=== PATIENT | female | born 1965 | race African-American/Black ===

== ENCOUNTER 2020-06-15 18:57 | Emergency (ER) | payer OTHER ==
[~2020-06-15] VITALS: Ht 172.7 cm; Wt 61.0 kg
[2020-06-15] MEDS ORDERED: SODIUM CHLORIDE 0.9% 1,000 ML IV ONE (20:45)
[2020-06-15 22:23] LABS: BASOPHILS % 0.5 % (0.0-2.0); EOSINOPHILS % 0.4 % (0.0-5.0); HEMATOCRIT. 35.9 % (36.0-48.0); HEMOGLOBIN. 11.9 g/dL (12.0-16.0); LYMPHOCYTES % 19.1 % (20.0-50.0); MEAN CORPUSCULAR HEMOGLOBIN 29.8 pg (28.0-32.0); MEAN CORPUSCULAR VOLUME 89.4 fL (81.0-99.0); MEAN PLATELET VOLUME 8.2 fl (7.4-10.4); MONOCYTES % 5.4 % (2.0-8.0); NEUTROPHILS % 74.6 % (40.0-76.0); PLATELET 294 x1000/uL (130-400); RED BLOOD CELL COUNT 4.01 mill/uL (4.2-5.4); RED CELL DISTRIBUTION WIDTH 14.4 % (11.6-14.6)
[2020-06-15 22:29] LABS: CHLORIDE 105 mEq/L (98-107)
[2020-06-15 22:39] LABS: B-HCG QUANTITATIVE < 1 mIU/mL (<3)
[2020-06-15] MEDS ORDERED: MEDROXYPROGESTERONE ACET 5MG TABLET PO STA (23:15)
[2020-06-15] MEDS ORDERED: MEDR10TA MT (23:19)
[2020-06-16 00:57] VITALS: BP 154/110
[2020-06-16] MEDS ORDERED: MEDROXYPROGESTERONE ACET 2.5MG TABLET PO SCH (01:00)
== END 2020-06-16 01:24 | disposition home or self-care (01) ==
LOC: ER 18:57
DX: N93.9 Abnormal uterine and vaginal bleeding, unspecified (principal); I10 Essential (primary) hypertension; M19.90 Unspecified osteoarthritis, unspecified site; G20 Parkinson's disease
CPT/HCPCS: 36415; 76830; 76856; 80053; 84702; 85025; 86850; 86900; 86901; 99284; J7030

== ENCOUNTER 2021-11-17 15:54 | Emergency (ER) | payer MEDICAID ==
[~2021-11-17] VITALS: Ht 170.2 cm; Wt 75.0 kg
[~2021-11-17 15:54] MED LIST: MEDR10TA MT
[2021-11-17] MEDS ORDERED: LOSARTAN POTASSIUM 50 MG TABLET PO ONE (16:15)
[2021-11-17] MEDS ORDERED: HYDROCODONE/ACETAMINOPHEN 5/325MG TABLET PO ONE (16:15)
[2021-11-17 18:25] VITALS: BP 123/84
[2021-11-17] MEDS ORDERED: LOSA50TA41 MT (19:13)
== END 2021-11-17 19:15 | disposition home or self-care (01) ==
LOC: ER 15:54
DX: I16.0 Hypertensive urgency (principal); G20 Parkinson's disease; M19.90 Unspecified osteoarthritis, unspecified site
CPT/HCPCS: 93005; 99284

== ENCOUNTER 2023-06-27 13:18 | Emergency (ER) | payer MEDICAID ==
[~2023-06-27] VITALS: Ht 172.7 cm; Wt 127.0 kg
[~2023-06-27 13:18] MED LIST changes: +LOSA50TA41 MT
[2023-06-27 13:31] VITALS: O2SAT 99
[2023-06-27] MEDS: IBUPROFEN 600MG TABLET PO ONE (14:15)
[2023-06-27] MEDS ORDERED: IBUP-2029 MT (15:23)
[2023-06-27 16:36] VITALS: BP 142/112; PULSE 53; RESP 18; TEMP 98.2
== END 2023-06-27 17:47 | disposition home or self-care (01) ==
LOC: ER 13:18
DX: S82.832A Other fracture of upper and lower end of left fibula, initial encounter for closed fracture (principal); I10 Essential (primary) hypertension; Z98.890 Other specified postprocedural states; V00.811A Fall from moving wheelchair (powered), initial encounter; Y93.89 Activity, other specified; Y92.89 Other specified places as the place of occurrence of the external cause; Y99.8 Other external cause status
CPT/HCPCS: 29515; 73562; 73610; 81025; 99284

== ENCOUNTER 2024-02-01 17:54 | Inpatient (IN) | payer MEDICAID ==
[~2024-02-01] VITALS: Ht 175.3 cm; Wt 99.3 kg
[~2024-02-01 17:54] MED LIST changes: +IBUP-2029 MT
[2024-02-01] MEDS ORDERED: LACTULOSE 20G/30ML UDC PO PRN (18:15)
[2024-02-01] MEDS ORDERED: NA PHOS,M-B/NA PHOS,DI-BA ENEMA 118ML PR PRN (18:30)
[2024-02-01] MEDS ORDERED: BISACODYL 10MG SUPP PR PRN (18:30)
[2024-02-01] MEDS ORDERED: ONDANSETRON HCL 4MG/2ML INJ IV PRN (18:30)
[2024-02-01] MEDS ORDERED: ZOLPIDEM TARTRATE 5MG TABLET PO PRN (18:30)
[2024-02-01] MEDS ORDERED: IPRATROPIUM/ALBUTEROL 0.5-3(2.5)MG/3ML NEB HHN PRN (18:30)
[2024-02-01] MEDS ORDERED: NITROGLYCERIN 0.4MG TABLET SL SL PRN (18:30)
[2024-02-01] MEDS ORDERED: ACETAMINOPHEN 325MG TABLET PO PRN (18:30)
[2024-02-01] MEDS ORDERED: NALOXONE HCL 0.4MG/ML 1ML VIAL IV PRN (18:30)
[2024-02-01 18:32] VITALS: BP 143/63; PULSE 59; RESP 20; TEMP 36.6404
[2024-02-01 20:00] VITALS: BP 136/58; PULSE 64; RESP 20; TEMP 37.2252; O2SAT 95
[2024-02-01] MEDS: RYTARY PO SCH (22:24)
[2024-02-01] MEDS: FAMOTIDINE 20MG TABLET PO SCH (22:25)
[2024-02-01] MEDS: DULOXETINE HCL 20MG DR CAPSULE PO SCH (22:25)
[2024-02-01] MEDS: DOCUSATE SODIUM 100MG CAPSULE PO SCH (22:25)
[2024-02-01] MEDS: CARBIDOPA/LEVODOPA 25/100MG TABLET PO SCH (22:25)
[2024-02-01] MEDS: LOSARTAN 50 MG TABLET PO SCH (22:26)
[2024-02-01] MEDS: POLYETHYLENE GLYCOL 3350 (17GM) 1 DOSE PACK PO SCH (22:27)
[2024-02-02] MEDS: HYDROCODONE/ACETAMINOPHEN 5/325MG TABLET PO PRN ×2 (06:52→16:57)
[2024-02-02 07:38] LABS: BASOPHILS % 0.4 % (0.0-2.0); EOSINOPHILS % 1.8 % (0.0-5.0); HEMATOCRIT. 30.2 % (36.0-48.0); HEMOGLOBIN. 9.9 g/dL (12.0-16.0); LYMPHOCYTES % 28.2 % (20.0-50.0); MEAN CORPUSCULAR HEMOGLOBIN 31.2 pg (28.0-32.0); MEAN CORPUSCULAR HGB CONC 32.6 g/dL (31.0-37.0); MEAN CORPUSCULAR VOLUME 95.5 fL (81.0-99.0); MEAN PLATELET VOLUME 8.7 fl (7.4-10.4); MONOCYTES % 10.3 % (2.0-8.0); NEUTROPHILS % 59.3 % (40.0-76.0); PLATELET 248 x1000/uL (130-400); RED BLOOD CELL COUNT 3.16 mill/uL (4.2-5.4)
[2024-02-02 07:39] LABS: CHLORIDE 103 mEq/L (98-107); POTASSIUM 3.7 mEq/L (3.5-5.1); SODIUM 137 mEq/L (136-145)
[2024-02-02 07:40] LABS: CARBON DIOXIDE 30 mEq/L (21-32)
[2024-02-02 07:45] LABS: CREATININE 0.5 mg/dL (0.6-1.0); GLUCOSE 102 mg/dL (70-105); UREA NITROGEN BLOOD 9 mg/dL (9-23)
[2024-02-02 07:47] LABS: ALANINE AMINOTRANSFERASE < 7 IU/L (10-49); ALBUMIN 3.6 g/dL (3.2-4.8); ASPARTATE AMINOTRANSFERASE 14 IU/L (<34); PREALBUMIN 7.3 mg/dl (10.0-40.0)
[2024-02-02 07:48] LABS: BILIRUBIN TOTAL 0.5 mg/dL (0.1-1.0); PROTEIN TOTAL 6.1 g/dL (6.0-8.3)
[2024-02-02 08:00] VITALS: BP 115/60; PULSE 64; RESP 19; TEMP 36.78072
[2024-02-02] MEDS: PRIMIDONE 50MG TABLET PO SCH (09:00)
[2024-02-02] MEDS: TRIAMTERENE/HCTZ 37.5/25MG TABLET PO SCH (09:00)
[2024-02-02] MEDS: PROPRANOLOL HCL 10MG TABLET PO SCH (09:00)
[2024-02-02] MEDS: TRAMADOL 50MG TABLET PO PRN (10:05)
[2024-02-02 20:00] VITALS: BP 123/73; PULSE 65; RESP 18; TEMP 36.50292; O2SAT 97
[2024-02-03 07:06] LABS: BASOPHILS % 0.6 % (0.0-2.0); EOSINOPHILS % 1.4 % (0.0-5.0); HEMATOCRIT. 34.3 % (36.0-48.0); HEMOGLOBIN. 11.1 g/dL (12.0-16.0); LYMPHOCYTES % 31.7 % (20.0-50.0); MEAN CORPUSCULAR HGB CONC 32.3 g/dL (31.0-37.0); MEAN CORPUSCULAR VOLUME 96.2 fL (81.0-99.0); MEAN PLATELET VOLUME 8.3 fl (7.4-10.4); MONOCYTES % 11.3 % (2.0-8.0); PLATELET 285 x1000/uL (130-400); RED BLOOD CELL COUNT 3.57 mill/uL (4.2-5.4); WHITE BLOOD COUNT 4.4 x1000/uL (4.5-11.0)
[2024-02-03 07:20] LABS: CALCIUM 9.6 mg/dL (8.7-10.4); CARBON DIOXIDE 30 mEq/L (21-32)
[2024-02-03 07:25] LABS: CREATININE 0.6 mg/dL (0.6-1.0); GLUCOSE 103 mg/dL (70-105); IRON 56 ug/dL (50-170); UREA NITROGEN BLOOD 9 mg/dL (9-23)
[2024-02-03 07:27] LABS: TOTAL IRON BINDING CAPACITY 242 ug/dl (250-425)
[2024-02-03 07:29] LABS: THYROID STIMULATING HORMONE 1.48 uIU/mL (0.55-4.78)
[2024-02-03 07:30] LABS: CHLORIDE 103 mEq/L (98-107); POTASSIUM 3.9 mEq/L (3.5-5.1); SODIUM 140 mEq/L (136-145)
[2024-02-03 07:40] LABS: FOLIC ACID (FOLATE) SERUM 14.02 ng/mL (>5.38)
[2024-02-03 07:42] LABS: FERRITIN 98 ng/mL (10-291)
[2024-02-03 07:46] LABS: VITAMIN B12 SERUM 778 pg/mL (211-911)
[2024-02-03 08:00] VITALS: BP 146/84; PULSE 67; RESP 18; TEMP 36.114; O2SAT 100
[2024-02-03] MEDS: ACETAMINOPHEN 325MG TABLET PO PRN (08:55)
[2024-02-03 20:00] VITALS: BP 123/69; PULSE 102; RESP 18; TEMP 35.89176; O2SAT 95
[2024-02-03] MEDS: MELATONIN 3MG TABLET PO SCH (21:51)
[2024-02-04] MEDS: GUAIFENESIN 200MG/10ML SUGAR FREE UDC PO PRN (01:13)
[2024-02-04 08:00] VITALS: BP 136/65; PULSE 77; RESP 20; TEMP 36.78072; O2SAT 100
[2024-02-04] MEDS: CARBIDOPA/LEVODOPA 25/100MG TABLET PO NR (17:57)
[2024-02-04 20:00] VITALS: BP 120/75; PULSE 73; RESP 20; TEMP 36.61404; O2SAT 96
[2024-02-05] MEDS: CARBIDOPA/LEVODOPA 25/100MG TABLET PO SCH (05:05)
[2024-02-05 08:00] VITALS: BP 120/70; PULSE 87; RESP 19; TEMP 36.72516; O2SAT 99
[2024-02-05] MEDS: ERGOCALCIFEROL 50000UNITS CAPSULE PO SCH (17:18)
[2024-02-05 20:00] VITALS: BP 120/52; PULSE 73; RESP 18; TEMP 36.114; O2SAT 100
[2024-02-06 08:00] VITALS: BP 120/46; PULSE 68; RESP 20; TEMP 36.114; O2SAT 98
[2024-02-06 20:00] VITALS: BP 96/76; PULSE 62; RESP 14; TEMP 36.50292; O2SAT 95
[2024-02-07 08:00] VITALS: BP 117/63; PULSE 62; RESP 18; TEMP 36.22512; O2SAT 100
[2024-02-07] MEDS: TRAMADOL 50MG TABLET PO NR (12:32)
[2024-02-07 20:00] VITALS: BP 102/57; PULSE 73; RESP 19; TEMP 36.22512; O2SAT 96
[2024-02-08] MEDS: CARBIDOPA/LEVODOPA 25/100MG TABLET PO SCH (05:13)
[2024-02-08 06:54] LABS: BASOPHILS % 0.7 % (0.0-2.0); EOSINOPHILS % 2.4 % (0.0-5.0); HEMATOCRIT. 32.6 % (36.0-48.0); HEMOGLOBIN. 10.5 g/dL (12.0-16.0); LYMPHOCYTES % 33.4 % (20.0-50.0); MEAN CORPUSCULAR HEMOGLOBIN 31.4 pg (28.0-32.0); MEAN CORPUSCULAR HGB CONC 32.4 g/dL (31.0-37.0); MEAN CORPUSCULAR VOLUME 97.1 fL (81.0-99.0); MEAN PLATELET VOLUME 7.7 fl (7.4-10.4); MONOCYTES % 11.2 % (2.0-8.0); NEUTROPHILS % 52.3 % (40.0-76.0); PLATELET 325 x1000/uL (130-400); RED BLOOD CELL COUNT 3.36 mill/uL (4.2-5.4); RED CELL DISTRIBUTION WIDTH 14.2 % (11.6-14.6); WHITE BLOOD COUNT 4.8 x1000/uL (4.5-11.0)
[2024-02-08 07:14] LABS: CARBON DIOXIDE 27 mEq/L (21-32); CHLORIDE 107 mEq/L (98-107); POTASSIUM 4.2 mEq/L (3.5-5.1); SODIUM 141 mEq/L (136-145)
[2024-02-08 07:16] LABS: CALCIUM 9.5 mg/dL (8.7-10.4)
[2024-02-08 07:20] LABS: CREATININE 0.6 mg/dL (0.6-1.0); GLUCOSE 98 mg/dL (70-105); UREA NITROGEN BLOOD 12 mg/dL (9-23)
[2024-02-08 08:00] VITALS: BP 108/67; PULSE 58; RESP 19; TEMP 36.72516; O2SAT 99
[2024-02-08 20:00] VITALS: BP 100/67; PULSE 66; RESP 18; TEMP 36.61404; O2SAT 95
[2024-02-09 08:00] VITALS: BP 150/79; PULSE 61; RESP 18; TEMP 36.22512; O2SAT 100
[2024-02-09] MEDS: AMANTADINE HCL 100 MG PO SCH (18:21)
[2024-02-09 20:00] VITALS: BP 140/82; PULSE 64; RESP 18; TEMP 36.22512; O2SAT 99
[2024-02-09] MEDS: PAROXETINE HCL 10MG TABLET PO SCH (22:13)
[2024-02-09] MEDS ORDERED: PAROXETINE HCL 10MG TABLET PO SCH (22:30)
[2024-02-10 08:17] VITALS: BP 111/61; PULSE 60; RESP 16; TEMP 35.78064; O2SAT 99
[2024-02-10] MEDS ORDERED: PRIMIDONE 50MG TABLET PO SCH (09:00)
[2024-02-10] MEDS: PRIMIDONE 50MG TABLET PO SCH (17:34)
[2024-02-10 20:00] VITALS: BP 121/79; PULSE 66; RESP 18; TEMP 36.28068; O2SAT 98
[2024-02-11 08:00] VITALS: BP 127/76; PULSE 60; RESP 18; RESP 19; TEMP 36.78072; O2SAT 98; O2SAT 99
[2024-02-11 20:00] VITALS: BP 103/65; PULSE 20; RESP 18; TEMP 36.61404; O2SAT 100
[2024-02-12 08:00] VITALS: BP 138/80; PULSE 60; RESP 18; TEMP 36.114; O2SAT 98
[2024-02-12 20:00] VITALS: BP 102/71; PULSE 55; RESP 18; TEMP 36.22512; O2SAT 96
[2024-02-13 08:00] VITALS: BP 133/72; PULSE 54; RESP 18; TEMP 36.114; O2SAT 96
[2024-02-13 20:00] VITALS: BP 113/75; PULSE 62; RESP 18; TEMP 36.3918; O2SAT 100
[2024-02-14 07:54] LABS: CALCIUM 9.3 mg/dL (8.7-10.4); CARBON DIOXIDE 28 mEq/L (21-32); CHLORIDE 108 mEq/L (98-107); POTASSIUM 3.6 mEq/L (3.5-5.1); SODIUM 143 mEq/L (136-145)
[2024-02-14 08:00] VITALS: BP 141/56; PULSE 64; RESP 20; TEMP 36.50292; O2SAT 99
[2024-02-14 08:00] LABS: CREATININE 0.7 mg/dL (0.6-1.0); GLUCOSE 92 mg/dL (70-105); UREA NITROGEN BLOOD 14 mg/dL (9-23)
[2024-02-14 08:18] LABS: BASOPHILS % 0.6 % (0.0-2.0); EOSINOPHILS % 2.2 % (0.0-5.0); HEMATOCRIT. 33.4 % (36.0-48.0); HEMOGLOBIN. 10.9 g/dL (12.0-16.0); MEAN CORPUSCULAR HEMOGLOBIN 31.4 pg (28.0-32.0); MEAN CORPUSCULAR HGB CONC 32.8 g/dL (31.0-37.0); MEAN CORPUSCULAR VOLUME 95.9 fL (81.0-99.0); MEAN PLATELET VOLUME 8.1 fl (7.4-10.4); MONOCYTES % 7.1 % (2.0-8.0); NEUTROPHILS % 60.1 % (40.0-76.0); PLATELET 408 x1000/uL (130-400); RED BLOOD CELL COUNT 3.48 mill/uL (4.2-5.4); RED CELL DISTRIBUTION WIDTH 14.3 % (11.6-14.6); WHITE BLOOD COUNT 5.2 x1000/uL (4.5-11.0)
[2024-02-14] MEDS ORDERED: *PATIENT'S OWN MEDICATION STORAGE XX SCH (08:30)
[2024-02-14] MEDS: AMANTADINE 100MG CAPSULE PO SCH (17:12)
[2024-02-14] MEDS: MAGNESIUM/ALUMINUM HYDROXIDE/SIMETHICONE 30ML UDC PO PRN (21:52)
[2024-02-15] MEDS ORDERED: AMANTADINE 100MG CAPSULE PO SCH (05:00)
[2024-02-15] MEDS ORDERED: NON FORMULARY MED XX SCH (05:15)
[2024-02-15] MEDS: AMANTADINE 100MG CAPSULE PO SCH ×2 (05:28→19:09)
[2024-02-15 08:00] VITALS: BP 129/73; PULSE 60; RESP 18; TEMP 36.16956; O2SAT 98
[2024-02-15 20:00] VITALS: BP 145/92; PULSE 56; RESP 18; TEMP 36.6696
[2024-02-16 08:00] VITALS: BP 138/65; PULSE 62; RESP 20; TEMP 36.16956; O2SAT 98
[2024-02-16] MEDS ORDERED: PATIENT'S OWN MEDICATION PO SCH (09:00)
[2024-02-16] MEDS: PRIMIDONE 50MG TABLET PO SCH (18:37)
[2024-02-16 20:00] VITALS: BP 127/73; PULSE 55; RESP 18; TEMP 36.50292; O2SAT 98
[2024-02-17 08:00] VITALS: BP 122/68; PULSE 51; RESP 20; TEMP 36.16956; O2SAT 99
[2024-02-17 20:00] VITALS: BP 108/67; PULSE 65; RESP 18; TEMP 36.50292; O2SAT 97
[2024-02-17 21:23] VITALS: BP 101/71; PULSE 80
[2024-02-17] MEDS: LOSARTAN 50 MG TABLET PO SCH (21:23)
[2024-02-18] MEDS: PROPRANOLOL HCL 10MG TABLET PO SCH (05:00)
[2024-02-18 08:00] VITALS: BP_SYST 142; BP_SYST 165; BP_DIAS 65; BP_DIAS 70; PULSE 64; PULSE 80; RESP 18; TEMP 36.114; O2SAT 100; O2SAT 99
[2024-02-18] MEDS: TRIAMTERENE/HCTZ 37.5/25MG TABLET PO SCH (09:30)
[2024-02-18] MEDS: PAROXETINE HCL 10MG TABLET PO SCH (10:17)
[2024-02-18 20:00] VITALS: BP 135/89; PULSE 100; RESP 18; TEMP 36.61404; O2SAT 99
[2024-02-19 07:44] LABS: CHLORIDE 107 mEq/L (98-107); POTASSIUM 3.1 mEq/L (3.5-5.1); SODIUM 144 mEq/L (136-145)
[2024-02-19 07:45] LABS: CARBON DIOXIDE 30 mEq/L (21-32)
[2024-02-19 07:46] LABS: CALCIUM 9.6 mg/dL (8.7-10.4)
[2024-02-19 07:48] LABS: BASOPHILS % 0.5 % (0.0-2.0); HEMATOCRIT. 34.7 % (36.0-48.0); HEMOGLOBIN. 11.4 g/dL (12.0-16.0); LYMPHOCYTES % 24.1 % (20.0-50.0); MEAN CORPUSCULAR HEMOGLOBIN 31.6 pg (28.0-32.0); MEAN CORPUSCULAR HGB CONC 32.8 g/dL (31.0-37.0); MEAN CORPUSCULAR VOLUME 96.3 fL (81.0-99.0); MEAN PLATELET VOLUME 8.2 fl (7.4-10.4); MONOCYTES % 5.5 % (2.0-8.0); NEUTROPHILS % 67.9 % (40.0-76.0); PLATELET 373 x1000/uL (130-400); RED BLOOD CELL COUNT 3.61 mill/uL (4.2-5.4); RED CELL DISTRIBUTION WIDTH 14.7 % (11.6-14.6); WHITE BLOOD COUNT 4.9 x1000/uL (4.5-11.0)
[2024-02-19 07:50] LABS: CREATININE 0.7 mg/dL (0.6-1.0); GLUCOSE 106 mg/dL (70-105); UREA NITROGEN BLOOD 9 mg/dL (9-23)
[2024-02-19 08:00] VITALS: BP 142/79; PULSE 65; RESP 20; TEMP 36.114; O2SAT 98
[2024-02-19] MEDS: POTASSIUM CHLORIDE 20MEQ TABLET SR PO NR (15:26)
[2024-02-19 20:00] VITALS: BP 105/75; PULSE 63; RESP 18; TEMP 36.44736; O2SAT 96
[2024-02-20 07:51] LABS: CARBON DIOXIDE 27 mEq/L (21-32)
[2024-02-20 07:52] LABS: CALCIUM 9.7 mg/dL (8.7-10.4)
[2024-02-20 07:53] LABS: CHLORIDE 107 mEq/L (98-107); POTASSIUM 3.6 mEq/L (3.5-5.1); SODIUM 142 mEq/L (136-145)
[2024-02-20 07:56] LABS: CREATININE 0.6 mg/dL (0.6-1.0); GLUCOSE 83 mg/dL (70-105); UREA NITROGEN BLOOD 14 mg/dL (9-23)
[2024-02-20 08:00] VITALS: BP 142/62; PULSE 55; RESP 20; TEMP 36.33624; O2SAT 100
[2024-02-20 20:00] VITALS: BP 170/108; PULSE 80; RESP 17; TEMP 36.72516; O2SAT 95
[2024-02-21 08:00] VITALS: BP 132/74; PULSE 80; RESP 18; TEMP 36.83628; O2SAT 96
[2024-02-21 20:00] VITALS: BP 105/81; PULSE 54; RESP 18; TEMP 36.22512; O2SAT 92
[2024-02-22] MEDS: CLONIDINE 0.1MG TABLET PO PRN (05:09)
[2024-02-22] MEDS ORDERED: FAMO20TA8 PO (07:48)
[2024-02-22] MEDS ORDERED: MELA3TAB40 PO (07:48)
[2024-02-22] MEDS ORDERED: AMAN100T PO ×2 (07:48)
[2024-02-22] MEDS ORDERED: DOCU-150 PO (07:48)
[2024-02-22] MEDS ORDERED: PARO10TA74 PO (07:48)
[2024-02-22] MEDS ORDERED: PROP10TA10 PO (07:48)
[2024-02-22] MEDS ORDERED: LOSA50TA41 PO (07:48)
[2024-02-22] MEDS ORDERED: SINCR21 MT (07:50)
[2024-02-22] MEDS ORDERED: DYZ MT (07:51)
[2024-02-22 08:00] VITALS: BP 131/82; PULSE 57; RESP 18; RESP 20; TEMP 36.9474; O2SAT 100
[2024-02-22 20:00] VITALS: BP 112/60; PULSE 75; RESP 18; TEMP 36.61404; O2SAT 100
[2024-02-23 08:00] VITALS: BP 113/60; PULSE 72; RESP 18; TEMP 35.89176; O2SAT 99
[2024-02-23 09:00] VITALS: BP 106/63; PULSE 71
[2024-02-23 13:23] VITALS: BP 125/68; PULSE 61
[2024-02-23 20:00] VITALS: BP 92/61; PULSE 75; RESP 18; TEMP 36.44736; O2SAT 88
[2024-02-24 08:00] VITALS: BP 128/83; PULSE 56; RESP 18; TEMP 36.72516; O2SAT 97
[2024-02-24 11:32] LABS: CHLORIDE 108 mEq/L (98-107); POTASSIUM 3.8 mEq/L (3.5-5.1); SODIUM 141 mEq/L (136-145)
[2024-02-24 11:33] LABS: BASOPHILS % 0.5 % (0.0-2.0); CARBON DIOXIDE 27 mEq/L (21-32); EOSINOPHILS % 1.6 % (0.0-5.0); HEMOGLOBIN. 10.6 g/dL (12.0-16.0); LYMPHOCYTES % 33.9 % (20.0-50.0); MEAN CORPUSCULAR HEMOGLOBIN 32.1 pg (28.0-32.0); MEAN CORPUSCULAR HGB CONC 33.2 g/dL (31.0-37.0); MEAN CORPUSCULAR VOLUME 96.5 fL (81.0-99.0); MEAN PLATELET VOLUME 8.3 fl (7.4-10.4); MONOCYTES % 8.3 % (2.0-8.0); NEUTROPHILS % 55.7 % (40.0-76.0); PLATELET 292 x1000/uL (130-400); RED BLOOD CELL COUNT 3.32 mill/uL (4.2-5.4); RED CELL DISTRIBUTION WIDTH 14.7 % (11.6-14.6)
[2024-02-24 11:38] LABS: CREATININE 0.7 mg/dL (0.6-1.0); GLUCOSE 94 mg/dL (70-105); UREA NITROGEN BLOOD 13 mg/dL (9-23)
[2024-02-24 11:39] LABS: ALANINE AMINOTRANSFERASE < 7 IU/L (10-49); ASPARTATE AMINOTRANSFERASE 20 IU/L (<34)
[2024-02-24 11:40] LABS: ALBUMIN 3.7 g/dL (3.2-4.8); BILIRUBIN TOTAL 0.3 mg/dL (0.1-1.0); PROTEIN TOTAL 6.2 g/dL (6.0-8.3)
[2024-02-24 20:00] VITALS: BP 123/62; PULSE 60; RESP 17; TEMP 36.44736; O2SAT 98
[2024-02-25 08:00] VITALS: BP 137/72; PULSE 64; RESP 20; TEMP 36.50292; O2SAT 97
[2024-02-25 20:00] VITALS: BP 132/77; PULSE 65; RESP 18; TEMP 36.61404; O2SAT 98
[2024-02-26 08:00] VITALS: BP 137/90; PULSE 58; RESP 20; TEMP 36.55848; O2SAT 100
[2024-02-26 20:00] VITALS: BP 119/68; PULSE 63; RESP 19; TEMP 35.89176; O2SAT 98
[2024-02-27 08:00] VITALS: BP 120/74; PULSE 67; RESP 20; TEMP 36.16956; O2SAT 98
[2024-02-27 19:44] VITALS: BP_SYST 116; BP_SYST 126; BP_DIAS 68; PULSE 66; PULSE 84; RESP 18; TEMP 36.114; TEMP 36.50292; O2SAT 100; O2SAT 97
[2024-02-28 08:00] VITALS: BP 142/85; PULSE 56; RESP 20; TEMP 36.28068; O2SAT 96
[2024-02-28 20:00] VITALS: BP 174/94; PULSE 50; RESP 19; TEMP 36.22512; O2SAT 100
[2024-02-28 22:23] VITALS: BP 120/90; PULSE 55
[2024-02-29 06:23] VITALS: BP 146/86; PULSE 55
[2024-02-29 08:00] VITALS: BP 125/77; PULSE 65; RESP 20; TEMP 36.28068; O2SAT 99
[2024-02-29] MEDS ORDERED: CLONIDINE 0.1MG TABLET PO PRN (19:30)
[2024-02-29] MEDS ORDERED: ONDANSETRON HCL 4MG/2ML INJ IV PRN (19:30)
[2024-02-29] MEDS ORDERED: NA PHOS,M-B/NA PHOS,DI-BA ENEMA 118ML PR PRN (19:30)
[2024-02-29] MEDS ORDERED: ACETAMINOPHEN 325MG TABLET PO PRN ×2 (19:30)
[2024-02-29] MEDS ORDERED: GUAIFENESIN 200MG/10ML SUGAR FREE UDC PO PRN (19:30)
[2024-02-29] MEDS ORDERED: MAGNESIUM/ALUMINUM HYDROXIDE/SIMETHICONE 30ML UDC PO PRN (19:30)
[2024-02-29] MEDS ORDERED: NITROGLYCERIN 0.4MG TABLET SL SL PRN (19:30)
[2024-02-29] MEDS ORDERED: LACTULOSE 20G/30ML UDC PO PRN (19:30)
[2024-02-29] MEDS ORDERED: BISACODYL 10MG SUPP PR PRN (19:30)
[2024-02-29] MEDS: PRIMIDONE 50MG TABLET PO SCH (19:37)
[2024-02-29 20:00] VITALS: BP 134/82; PULSE 60; RESP 20; TEMP 36.33624; O2SAT 94
[2024-03-01] MEDS ORDERED: NON FORMULARY MED XX SCH (05:00)
[2024-03-01 08:00] VITALS: BP 146/83; PULSE 65; RESP 20; TEMP 36.22512; O2SAT 100
[2024-03-01] MEDS: LOSARTAN 50 MG TABLET PO SCH (08:51)
[2024-03-01] MEDS: DOCUSATE SODIUM 100MG CAPSULE PO SCH (08:51)
[2024-03-01] MEDS: FAMOTIDINE 20MG TABLET PO SCH (08:51)
[2024-03-01] MEDS: POLYETHYLENE GLYCOL 3350 (17GM) 1 DOSE PACK PO SCH (08:55)
[2024-03-01] MEDS ORDERED: CLONIDINE 0.1MG TABLET PO PRN (13:15)
[2024-03-01] MEDS: LOSARTAN 50 MG TABLET PO NR (14:07)
[2024-03-01] MEDS: PROPRANOLOL HCL 10MG TABLET PO NR (14:08)
[2024-03-01 20:00] VITALS: BP 101/65; PULSE 68; RESP 17; TEMP 36.72516; O2SAT 100
[2024-03-01] MEDS ORDERED: LOSARTAN 50 MG TABLET PO SCH (21:30)
[2024-03-02] MEDS: PROPRANOLOL HCL 10MG TABLET PO SCH (05:00)
[2024-03-02 08:00] VITALS: BP 143/74; PULSE 66; RESP 20; TEMP 36.00288; O2SAT 98
[2024-03-02] MEDS: TRIAMTERENE/HCTZ 37.5/25MG TABLET PO SCH (09:12)
[2024-03-02 20:00] VITALS: BP 102/60; PULSE 63; RESP 18; TEMP 36.33624; O2SAT 97
[2024-03-03 08:00] VITALS: BP 145/73; PULSE 56; RESP 18; TEMP 36.22512; O2SAT 98
[2024-03-03] MEDS: PRIMIDONE 50MG TABLET PO SCH (18:28)
[2024-03-03 20:00] VITALS: BP 136/90; PULSE 62; RESP 18; TEMP 36.3918; O2SAT 99
[2024-03-04] MEDS ORDERED: CARBIDOPA/LEVODOPA 25/100MG TABLET PO SCH (05:00)
[2024-03-04 08:00] VITALS: BP 133/70; PULSE 62; RESP 20; TEMP 36.114; O2SAT 100
[2024-03-04] MEDS: CARBIDOPA/LEVODOPA 25/100MG TABLET PO SCH (09:09)
[2024-03-04 20:00] VITALS: BP 143/92; PULSE 65; RESP 18; TEMP 36.83628; O2SAT 98
[2024-03-05 08:00] VITALS: BP 152/81; PULSE 59; RESP 20; TEMP 36.3918; TEMP 36.39180; O2SAT 98
[2024-03-05 11:39] VITALS: BP 141/79; PULSE 59; TEMP 97.5; O2SAT 100
[2024-03-05 13:08] VITALS: PULSE 59
== END 2024-03-05 16:49 | DRG 342 ==
PROVIDERS: ADMIT Physical Medicine & Rehabilitation Spinal Cord Injury Medicine; ATTEND Internal Medicine
DX: S82.391A Other fracture of lower end of right tibia, initial encounter for closed fracture (principal); G20.A1 Parkinson's disease without dyskinesia, without mention of fluctuations; S82.831A Other fracture of upper and lower end of right fibula, initial encounter for closed fracture; D64.9 Anemia, unspecified; E66.9 Obesity, unspecified; E55.9 Vitamin D deficiency, unspecified; S82.892A Other fracture of left lower leg, initial encounter for closed fracture; F32.A Depression, unspecified; S99.911A Unspecified injury of right ankle, initial encounter; K59.00 Constipation, unspecified; R53.81 Other malaise; I10 Essential (primary) hypertension; G62.9 Polyneuropathy, unspecified; R20.0 Anesthesia of skin; G47.00 Insomnia, unspecified; W18.39XA Other fall on same level, initial encounter; R26.9 Unspecified abnormalities of gait and mobility; Y99.8 Other external cause status; Z91.81 History of falling; Y92.89 Other specified places as the place of occurrence of the external cause; Y93.89 Activity, other specified; Z79.899 Other long term (current) drug therapy; Z68.32 Body mass index [BMI] 32.0-32.9, adult
CPT/HCPCS: 36415; 73610; 80048; 80053; 82306; 82607; 82728; 82746; 83036; 83540; 83550; 84134; 84443; 85025; 92523; 93970; 97110; 97112; 97162; 97166; 97530; 97535; 97542; A4565; A6261